=== PATIENT | male | born 1985 | race Caucasian/White ===

== ENCOUNTER 2025-04-07 23:55 | Emergency (ER) | payer OTHER, SELFPAY ==
[2025-04-07 23:57] VITALS: BP 130/87; PULSE 95; RESP 17; TEMP 36.6; O2SAT 97
--- OUTSIDE RECORDS SUMMARY | 2025-04-08 00:31 | XMS_ITS | Clinical Summary ---
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
--- OUTSIDE RECORDS SUMMARY | 2025-04-08 00:31 | XMS_ITS | Encounter Summary ---
Author Organization [facility] Health Address [address] [place] [address] Care Team Providers Care Curtain Cutter Name Role Phone Unavailable Primary Care Provider Unavailabl e Prior Encounters Date Type Department Care Team Description 11/12/2023 Orders Only [facility] [address] [place] [address] Maru Strong DMD 11/03/2023 Orders Only [facility] [address] [place] [address] Maru Strong DMD 10/30/2023 Orders Only [facility] [address] [place] [address] Maru Strong DMD 10/03/2023 Travel 10/03/2023 10:15 AM SOCK EXAMINER Office Visit [facility] [address] [place] [address] Maru Strong DMD Last Filed Vital Signs Vital Sign Reading Time Taken Comments Blood Pressure 144/85 10/03/2023 10:35 AM SOCK EXAMINER Pulse - - Temperature - - Respiratory Rate - - Oxygen Saturation - - Inhaled Oxygen Concentration - - Weight - - Height - - Body Mass Index - - Plan of Treatment Not on file Procedures Procedure Name Priority Date/Time Associated Diagnosis Comments CBCT - PROBLEM FOCUSED Routine 10:15 AM SOCK EXAMINER ADDITIONAL X-RAY Routine 10/03/2023 10:1 5 AM SOCK EXAMINER LIMITED ORAL EVALUATION - PROBLEM FOCUSED Routine 10/03/2023 10:15 AM SOCK EXAMINER SINGLE X-RAY Routine 10/03/2023 10:15 AM SOCK EXAMINER Visit Diagnoses Not on file Insurance [place] [id number]
--- OUTSIDE RECORDS SUMMARY | 2025-04-08 00:31 | XMS_ITS | Clinical Summary ---
Author Organization [facility] Care Team Providers Care Analytical Lab Analyst Name Role Phone Unavailable Primary Care Provider Unavailabl e Social History Tobacco Use Types Packs/Day Years Used Date Smoking Tobacco: Never Assessed Sex and Gender Information Value Date Recorded Sex Assigned at Not on file Legal Sex Male 7:16 PM CDT Gender Identity Not on file Sexual Orientation Not on file Plan of Treatment Not on file
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
== END 2025-04-08 01:18 ==
PROVIDERS: Emergency Provider Registered Nurse
DX: Z02.89 Encounter for other administrative examinations (principal); S06.0X0A Concussion without loss of consciousness, initial encounter; S05.12XA Contusion of eyeball and orbital tissues, left eye, initial encounter; F17.210 Nicotine dependence, cigarettes, uncomplicated; Y04.8XXA Assault by other bodily force, initial encounter
CPT/HCPCS: 99283